=== PATIENT | female | born 1955 | race Caucasian/White ===

== ENCOUNTER 2021-02-10 11:51 | Observation (INO) ==
[2021-02-10] MEDS ORDERED: 0.9 % Sodium Chloride 1,000 ML IVC ONE ×2 (12:00→13:51)
[2021-02-10] MEDS ORDERED: Aspirin 325 MG TABLET PO ONE (12:00)
[2021-02-10] MEDS ORDERED: Isovue-370 500 ML BOTTLE IVP ONE (12:07)
[2021-02-10 12:23] LABS: Basophils # 0.1 K/mcL (0.0-0.2); Basophils % 0.3 %; Eosinophils # 0.2 K/mcL (0.0-0.6); Eosinophils % 1.1 %; Hematocrit 36.6 % (35.3-44.9); Hemoglobin 10.9 g/dL (11.5-15.4); Immature Granulocytes % 0.5 % (0-4); Lymphocytes # 1.9 K/mcL (0.6-4.6); Lymphocytes % 12.9 %; Mean Corpuscular HGB Conc 29.8 g/dL (31.6-35.5); Mean Corpuscular Hemoglobin 24.9 pg (28.0-33.3); Mean Corpuscular Volume 83.6 fL (83.0-100.0); Mean Platelet Volume 11.6 fL (9.4-12.4); Monocytes # 1.5 K/mcL (0.0-1.3); Neutrophils # 11.3 K/mcL (1.6-8.9); Platelet Count 212 K/mcL (140-400); Red Blood Count 4.38 M/mcL (3.82-4.97); Red Cell Distribution Width 15.6 % (11.5-14.5); Segmented Neutrophils % 75.2 %
[2021-02-10 12:25] LABS: VBG HCO3 28 mEq/L (21-27); VBG PCO2 51 mmHg (41-51); VBG PH 7.34 pH Units (7.32-7.42); VBG PO2 37 mmHg (25-50)
[2021-02-10 12:46] LABS: Alanine Aminotransferase 17 Units/L (7-52); Albumin 3.6 g/dL (3.5-5.7); Albumin/Globulin Ratio 1.4 (1.1-2.2); Alkaline Phosphatase 119 Units/L (34-104); Aspartate Amino Transferase 23 Units/L (13-39); BUN/Creatinine Ratio 16 (6-26); Blood Urea Nitrogen 16 mg/dL (8-23); Calcium 8.9 mg/dL (8.6-10.3); Carbon Dioxide 26 mEq/L (23-29); Chloride 100 mEq/L (98-107); Globulin 2.5 g/dL (2.4-3.5); Glucose 488 mg/dL (70-105); Magnesium 1.4 mg/dL (1.6-2.6); Osmolality,Calculated 307 (280-300); Phosphorous 3.1 mg/dL (2.7-4.5); Potassium 3.8 mEq/L (3.5-5.1); Sodium 137 mEq/L (136-145); Total Protein 6.1 g/dL (6.4-8.9); eGFR For African Americans > 60 (> 60); eGFR For Non-African Americans 53 (> 60)
[2021-02-10 12:47] LABS: Troponin I 0.03 ng/mL (< 0.04)
[2021-02-10] MEDS ORDERED: Morphine Sulfate 2 MG/ML SYRINGE IVP ONE (13:09)
[2021-02-10] MEDS ORDERED: Orphenadrine 60 MG/2 ML VIAL IVP ONE (13:11)
[2021-02-10] MEDS ORDERED: Ondansetron 4 MG/2 ML VIAL IVP ONE (13:12)
[2021-02-10 13:36] LABS: Bilirubin,Urine Negative (Negative); Blood,Urine Negative (Negative); Clarity,Urine Clear (Clear); Color,Urine Light-Yellow (Yellow); Glucose,Urine (UA) >=1000 mg/dL (Normal); Ketones,Urine 40 mg/dL (Negative); Leukocyte Esterase,Urine Negative (Negative); Mucus,Urine Few per lpf (None-Few); Nitrite,Urine Negative (Negative); Protein,Urine Negative (Neg-Trace); RBC,Urine 0-3 per hpf (0-3); Specific Gravity,Urine 1.028 (1.010-1.025); Urobilinogen,Urine Normal (Normal); WBC,Urine 0-3 per hpf (0-3)
[2021-02-10] MEDS ORDERED: Ondansetron 4 MG/2 ML VIAL IVP PRN (15:53)
[2021-02-10] MEDS ORDERED: MOM Conc 10 ML UD.LIQ PO PRN (15:53)
[2021-02-10] MEDS ORDERED: Melatonin 3 MG TABLET PO PRN (15:53)
[2021-02-10] MEDS ORDERED: Mag Hydrox/Al Hydrox/Simeth 30 ML UDC PO PRN (15:53)
[2021-02-10] MEDS ORDERED: Naloxone 0.4 MG/ML INJ IVP PRN (15:53)
[2021-02-10] MEDS ORDERED: Perflutren Lipid Microsphere 1.3 ML in 0.9 % Sodium Chloride 8.7 ML IVP PRN (15:58)
[2021-02-10] MEDS ORDERED: D5% in Water 1,000 ML IVC PRN (15:59)
[2021-02-10] MEDS ORDERED: Morphine Sulfate 2 MG/ML SYRINGE IVP PRN (15:59)
[2021-02-10] MEDS ORDERED: *HR* Dextrose 50 % in Water (Vial) 50 ML VIAL IVP PRN (15:59)
[2021-02-10] MEDS ORDERED: Dextrose Gel 15 GM/37.5 ML TUBE PO PRN ×2 (15:59)
[2021-02-10] MEDS: 0.9 % Sodium Chloride 1,000 ML IVC SCH (16:35)
[2021-02-10] MEDS: Insulin LISPRO 300 UNITS/3 ML VIAL SUBQ SCH ×2 (17:04→20:05)
[2021-02-10] MEDS: Ketorolac 30 MG/ML VIAL IVP PRN ×2 (17:37→23:44)
[2021-02-10] MEDS ORDERED: *HR* Heparin 5,000 UNIT/ML VIAL IVP ONE (19:43)
[2021-02-10] MEDS ORDERED: *HR* Heparin 5,000 UNIT/ML VIAL IVP PRN ×2 (19:43)
[2021-02-10] MEDS ORDERED: Heparin 25,000UNIT/250ML 1/2NS 25,000 UNIT/250 ML IV.SOLN IVC SCH (19:45)
[2021-02-10 20:17] LABS: Mean Corpuscular HGB Conc 30.3 g/dL (31.6-35.5); Mean Corpuscular Hemoglobin 25.1 pg (28.0-33.3); Mean Corpuscular Volume 82.9 fL (83.0-100.0); Mean Platelet Volume 11.3 fL (9.4-12.4); Platelet Count 192 K/mcL (140-400); Red Blood Count 3.98 M/mcL (3.82-4.97); Red Cell Distribution Width 15.6 % (11.5-14.5); White Blood Count 15.5 K/mcL (4.3-11.1)
[2021-02-10 20:32] LABS: INR 1.2; Prothrombin Time 13.6 Seconds (9.4-12.1)
[2021-02-10 20:34] LABS: Activated Partial Thrombo Time 27.7 Seconds (26.0-36.0)
[2021-02-10 20:35] LABS: Heparin anti-factor XA UFH < 0.04 IU/mL (0.30-0.70)
[2021-02-11 01:31] LABS: Hematocrit 30.6 % (35.3-44.9); Hemoglobin 9.8 g/dL (11.5-15.4); Mean Corpuscular Hemoglobin 26.1 pg (28.0-33.3); Mean Corpuscular Volume 81.4 fL (83.0-100.0); Mean Platelet Volume 12.4 fL (9.4-12.4); Platelet Count 220 K/mcL (140-400); Red Blood Count 3.76 M/mcL (3.82-4.97); Red Cell Distribution Width 15.7 % (11.5-14.5); White Blood Count 10.4 K/mcL (4.3-11.1)
[2021-02-11] MEDS ORDERED: Insulin LISPRO 300 UNITS/3 ML VIAL SUBQ STA (01:37)
[2021-02-11 01:50] LABS: Alanine Aminotransferase 21 Units/L (7-52); Albumin 3.3 g/dL (3.5-5.7); Albumin/Globulin Ratio 1.5 (1.1-2.2); Alkaline Phosphatase 108 Units/L (34-104); Aspartate Amino Transferase 37 Units/L (13-39); BUN/Creatinine Ratio 16 (6-26); Bilirubin,Total 0.6 mg/dL (0.3-1.0); Blood Urea Nitrogen 17 mg/dL (8-23); Calcium 8.5 mg/dL (8.6-10.3); Carbon Dioxide 23 mEq/L (23-29); Chloride 107 mEq/L (98-107); Chol/HDL Ratio 2.2 (0-4.9); Cholesterol 82 mg/dL (< 200); Globulin 2.2 g/dL (2.4-3.5); Glucose 269 mg/dL (70-105); HDL Cholesterol 37 mg/dL (40-59); LDL Cholesterol,Calculated 16 mg/dL (< 100); Osmolality,Calculated 299 (280-300); Potassium 3.6 mEq/L (3.5-5.1); Sodium 139 mEq/L (136-145); Total Protein 5.5 g/dL (6.4-8.9); Triglycerides 143 mg/dL (< 150); eGFR For African Americans > 60 (> 60); eGFR For Non-African Americans 51 (> 60)
[2021-02-11] MEDS ORDERED: Acetaminophen 325 MG TABLET PO PRN (04:33)
[2021-02-11] MEDS: 0.9 % Sodium Chloride 1,000 ML IVC SCH (04:55)
[2021-02-11] MEDS: Ketorolac 30 MG/ML VIAL IVP PRN ×2 (05:45→14:44)
[2021-02-11] MEDS ORDERED: *HR* Enoxaparin 40 MG/0.4 ML SYRINGE SQ SCH (06:00)
[2021-02-11 08:21] LABS: Hematocrit 34.2 % (35.3-44.9); Hemoglobin 10.1 g/dL (11.5-15.4)
[2021-02-11] MEDS: Aspirin 81 MG TAB.CHEW PO SCH (08:41)
[2021-02-11] MEDS: Insulin DETEMIR 100 UNIT/ML X5UNITS SUBQ SCH (08:41)
[2021-02-11] MEDS: Insulin LISPRO 300 UNITS/3 ML VIAL SUBQ SCH ×4 (08:42→21:25)
[2021-02-11] MEDS ORDERED: rOPINIRole 1 MG TABLET PO SCH (09:00)
[2021-02-11] MEDS ORDERED: *HR* FentaNYL (PF) 100 MCG/2 ML VIAL ONE (09:14)
[2021-02-11] MEDS ORDERED: *HR* Heparin 10,000 UNIT/10 ML VIAL ONE (09:14)
[2021-02-11] MEDS ORDERED: *HR* Midazolam HCl 2 MG/2 ML VIAL ONE (09:14)
[2021-02-11] MEDS ORDERED: Heparin 1,000 UNITS/500 mL 500 ML ONE (09:14)
[2021-02-11] MEDS ORDERED: 0.9 % Sodium Chloride 1,000 ML ONE ×2 (09:14→09:15)
[2021-02-11] MEDS ORDERED: ISOVUE-370 200 ML INFUS..BTL ONE (09:15)
[2021-02-11] MEDS ORDERED: Nitroglycerin 1,000 MCG/5 ML VIAL IV ONE (09:15)
[2021-02-11] MEDS ORDERED: Gabapentin 400 MG CAPSULE PO SCH (21:00)
[2021-02-12 01:31] LABS: Hematocrit 33.5 % (35.3-44.9); Hemoglobin 10.1 g/dL (11.5-15.4); Mean Corpuscular HGB Conc 30.1 g/dL (31.6-35.5); Mean Corpuscular Hemoglobin 24.8 pg (28.0-33.3); Mean Corpuscular Volume 82.3 fL (83.0-100.0); Mean Platelet Volume 11.8 fL (9.4-12.4); Platelet Count 170 K/mcL (140-400); Red Blood Count 4.07 M/mcL (3.82-4.97); Red Cell Distribution Width 15.8 % (11.5-14.5); White Blood Count 6.5 K/mcL (4.3-11.1)
[2021-02-12 01:49] LABS: Alanine Aminotransferase 25 Units/L (7-52); Albumin 3.2 g/dL (3.5-5.7); Albumin/Globulin Ratio 1.3 (1.1-2.2); Alkaline Phosphatase 103 Units/L (34-104); Aspartate Amino Transferase 52 Units/L (13-39); BUN/Creatinine Ratio 15 (6-26); Bilirubin,Total 0.7 mg/dL (0.3-1.0); Blood Urea Nitrogen 13 mg/dL (8-23); Calcium 8.7 mg/dL (8.6-10.3); Carbon Dioxide 24 mEq/L (23-29); Chloride 108 mEq/L (98-107); Globulin 2.4 g/dL (2.4-3.5); Glucose 173 mg/dL (70-105); Osmolality,Calculated 294 (280-300); Potassium 3.5 mEq/L (3.5-5.1); Sodium 140 mEq/L (136-145); Total Protein 5.6 g/dL (6.4-8.9); eGFR For African Americans > 60 (> 60); eGFR For Non-African Americans > 60 (> 60)
[2021-02-12] MEDS: Ketorolac 30 MG/ML VIAL IVP PRN (05:40)
[2021-02-12] MEDS: Aspirin 81 MG TAB.CHEW PO SCH (07:46)
[2021-02-12] MEDS: Insulin LISPRO 300 UNITS/3 ML VIAL SUBQ SCH ×2 (07:46→12:35)
[2021-02-12] MEDS: Insulin DETEMIR 100 UNIT/ML X5UNITS SUBQ SCH (07:50)
[2021-02-12] MEDS ORDERED: Hydrocortisone 10 MG TABLET PO SCH ×2 (09:00→16:00)
[2021-02-12 11:04] VITALS: BP 149/75
[2021-02-12 16:38] LABS: Estimated Average Glucose 146 mg/dl; Hemoglobin A1C 6.7 %
== END 2021-02-12 17:45 | disposition home or self-care (01) ==
LOC: 3BNU 11:51 → EMEROOARM 11:51 → 3BNU 16:22
PROVIDERS: ADMIT Pharmacist; ATTEND Pharmacist